=== PATIENT | male | born 1965 | race Caucasian/White ===

== ENCOUNTER 2019-03-02 12:45 | Emergency (ER) | payer BC ==
[2019-03-02] MEDS: IBUPROFEN 800 MG TAB PO (14:07)
[2019-03-02] MEDS: LIDOCAINE 1% (MDV) 10 ML INJ INJ (14:29)
[2019-03-02] MEDS ORDERED: LIDOCAINE 1% (MDV) 20 ML INJ (14:31)
== END 2019-03-02 16:10 | disposition home or self-care (01) ==
LOC: E/R 12:45
DX: S63.287A Dislocation of proximal interphalangeal joint of left little finger, initial encounter (principal); W18.39XA Other fall on same level, initial encounter; Y92.9 Unspecified place or not applicable; Z21 Asymptomatic human immunodeficiency virus [HIV] infection status
CPT/HCPCS: 26770; 73130-LT; 99284-25